=== PATIENT | male | born 1960 | race Caucasian/White ===

== ENCOUNTER → 2021-05-25 09:55 | Outpatient (BNVA) | payer MEDICARE, SELFPAY | PROVIDERS: Visit Provider Internal Medicine Rheumatology | DX: M19.90 Unspecified osteoarthritis, unspecified site (principal); Z79.899 Other long term (current) drug therapy; Z11.59 Encounter for screening for other viral diseases; Z11.1 Encounter for screening for respiratory tuberculosis; M77.8 Other enthesopathies, not elsewhere classified; Z71.89 Other specified counseling; F17.200 Nicotine dependence, unspecified, uncomplicated; M45.9 Ankylosing spondylitis of unspecified sites in spine | CPT/HCPCS: 71046; 73130; 73630; 80076; 82306; 82565; 85025; 85651; 86038; 86140; 86431; 86480; 86704; 86803; 86812; 87340; 99204 ==

== ENCOUNTER 2021-05-25 11:43 | Outpatient (CLI) | payer MEDICARE, SELFPAY ==
--- NOTE | 2021-05-25 11:53 | XR_ITS ---
WS: [id number] Exam: XR foot LT min 3V* [id number] Date/Time of Exam: 05/25/2021 11:57 AM Reason For Exam: Z79.899 - Other correction (current) drug therapy No fracture or dislocation. The joint structures are well-maintained. No soft tissue foreign bodies. Posterior heel spur. XR/XR foot LT min 3V* [id number] IMPRESSION: 1. No fracture or other significant finding.
--- NOTE | 2021-05-25 11:53 | XR_ITS ---
WS: [id number] Exam: XR chest 2V* [id number] Date/Time of Exam: 05/25/2021 11:57 AM Reason For Exam: Z79.899 - Other lobsterman (current) drug therapy Findings: The lungs are clear and fully expanded. Costophrenic angles are sharp. No infiltrates. Bronchovascula r relief appears normal. Cardiac silhouette is unremarkable. Bony elements are intact. XR/XR chest 2V* [id number] IMPRESSION: Unremarkable chest radiograph.
--- NOTE | 2021-05-25 11:53 | XR_ITS ---
WS: [id number] Exam: XR foot RT min 3V* [id number] Date/Time of Exam: 05/25/2021 11:57 AM Reason For Exam: Z79.899 - Other detention (current) drug therapy No acute fracture or dislocation. Joint structures are relatively well maintained. No soft tissue for eign bodies are seen. Plantar heel spur. Old fracture deformities and postoperative changes partially visualized in the lower tibia and fibula. XR/XR foot RT min 3V* [id number] IMPRESSION: 1. No fracture or dislocation. 2. Other minor findings as above.
--- NOTE | 2021-05-25 11:53 | XR_ITS ---
WS: [id number] Exam: XR hand RT min 3V* [id number] Date/Time of Exam: 05/25/2021 11:57 AM Reason For Exam: Z79.899 - Other custodial (current) drug therapy No acute fracture or dislocation. No soft tissue foreign bodies are seen. Mild DJD at the CMC joint o f the thumb and the third MP joint. XR/XR hand RT min 3V* [id number] IMPRESSION: 1. Minimal degenerative change. No fracture or other significant finding.
--- NOTE | 2021-05-25 11:53 | XR_ITS ---
WS: [email or web address] Exam: XR hand LT min 3V* [id number] Date/Time of Exam: 05/25/2021 11:57 AM Reason For Exam: Z79.899 - Other detention (current) drug therapy No acute fracture or dislocation noted. Joint structures are well-maintained. 1 mm metallic soft tiss ue foreign body in the distal index finger. XR/XR hand LT min 3V* [id number] IMPRESSION: 1. No fracture or dislocation. 2. 1 mm metallic soft tissue foreign body in the index finger.
[2021-05-25 12:35] LABS: Basophils # 0.1 10^3/uL (0.0-0.1); Basophils % 0.8 %; Eosinophils # 0.1 10^3/uL (0.0-0.8); Eosinophils % 0.9 %; Hematocrit 47.8 % (42.0-52.0); Hemoglobin 16.2 g/dL (11.7-16.6); Lymphocytes # 1.5 10^3/uL (0.8-4.8); Lymphocytes % 23.8 %; Mean Corpuscular HGB Conc 33.9 g/dL (30.0-36.0); Mean Corpuscular Hemoglobin 30.3 pg (28.0-34.0); Mean Corpuscular Volume 89.5 fl (80-94); Monocytes # 0.4 10^3/uL (0.2-0.9); Monocytes % 6.7 %; Neutrophils # 4.31 10^3/uL (1.8-7.7); Neutrophils % 67.5 %; Nucleated Red Blood Cells % 0 %; Platelet Count 288 10^3/cmm (130-400); Red Blood Count 5.34 10^6/uL (4.1-5.3); Red Cell Distribution Width 12.6 % (12.1-15.1); White Blood Count 6.4 10^3/uL (4.0-10.0)
[2021-05-25 13:00] LABS: Alanine Aminotransferase 14 U/L (0-41); Albumin Level 4.7 g/dL (3.5-5.2); Alkaline Phosphatase 103 IU/L (40-130); Aspartate Amino Transferase 16 U/L (0-40); C Reactive Protein 1.8 mg/L (0.0-4.9); Globulin 2.7 g/dL (1.3-4.6); Glomerular Filtration Rate 98.6 mL/min (90-130); Total Bilirubin 0.4 mg/dL (0.15-1.2); Total Protein 7.4 g/dL (6.6-8.7)
[2021-05-25 13:16] LABS: 25 Hydroxy Vitamin D 43 ng/mL (30-100)
[2021-05-25 13:19] LABS: Erythrocyte Sedimentation Rate 5 mm/hr (0-10)
[2021-05-25 13:34] LABS: Hepatitis B Core AB, Total Non-Reactive (Nonreactive); Hepatitis B Surface Antigen Non-Reactive (Nonreactive); Hepatitis C Virus Antibody Non-Reactive (Nonreactive)
[2021-05-26 14:58] LABS: Cyclic Citrullinated Peptide <16 UNITS
[2021-05-27 12:38] LABS: Anti-Nuclear Antibody Pattern Cytoplasmic; Anti-Nuclear Antibody Screen POSITIVE (NEGATIVE); Anti-Nuclear Antibody Titer 1:40 titer
[2021-05-27 13:08] LABS: HLA-B27 NEGATIVE (NEGATIVE)
[2021-05-27 14:32] LABS: Quantiferon Nil 0.02 IU/mL; Quantiferon TB Gold NEGATIVE (NEGATIVE)
== END 2021-05-25 11:44 | disposition home or self-care (01) ==
PROVIDERS: PCP Nurse Practitioner Family; Visit Provider Internal Medicine Rheumatology
DX: M19.90 Unspecified osteoarthritis, unspecified site (principal); Z79.899 Other long term (current) drug therapy; Z11.59 Encounter for screening for other viral diseases; M45.9 Ankylosing spondylitis of unspecified sites in spine; Z11.1 Encounter for screening for respiratory tuberculosis
CPT/HCPCS: 71046; 73130; 73630; 80076; 82306; 82565; 85025; 85651; 86038; 86140; 86431; 86480; 86704; 86803; 86812; 87340

== ENCOUNTER 2021-06-14 12:27 | Inpatient (IN) | payer MEDICARE, SELFPAY ==
[2021-06-14] VITALS (11 sets, daily range): BP systolic 108–133; BP diastolic 66–82; PULSE 76–93; RESP 16–18; TEMP 36.5–38.8; O2SAT 95–100; BMI 21.2
--- NOTE | 2021-06-14 12:57 | ECG_ITS ---
[facility] Test Date: 2021-06-14 Pat Name: Quang Mccullough Department: Room: Gender: Male Stitchdown Toe Former: : 1960 Requested By: Tung Palacios Order Number: [id number] Sergey MD: Ashwin Back M.D. Measurements Intervals [place] Rate: 84 P: 82 RI: 182 QRS: 78 QRSD: 83 T: 76 QT: 338 QTc: 400 Interpretive Statements SINUS RHYTHM POSSIBLE LEFT ATRIAL ENLARGEMENT [-0.1mV P-WAVE IN V1/V2] MODERATE T-WAVE ABNORMALITY, CONSIDER ANTERIOR ISCHEMIA [-0.1+ mV T-WAVE IN V3/V4] No previous ECG available for comparison Electronically Signed On 06-14-2021 23:52:09 CDT by Ashwin Back M.D. [id number]
--- NOTE | 2021-06-14 13:05 | W.ED.GENADLT ---
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 Patient tells me that he started hydroxychloroquine 200 mg twice daily 20 days ago. 10 days ago, he noticed mild red and tender rash on his L arm and R leg. Since then, patient has been noticed more discrete rash in the foot and arms that has become confluent on the chest and face. Patient also reports nausea and vomiting for the last 2 days. Patient denies any melena or hematochezia. Patient reports that 2 days ago he took his temperature and measured 100.7 by mouth at home. Since then, patient has been not feeling well. Yesterday patient noticed a tick bite on the right leg. He subsequently remove the tick. He is on aware how long the tick has been there for. Patient went to an outside emergency room for evaluation and basic blood work including tick work-up that was negative. Patient reports ongoing diffuse abdominal pain prior to the rash. Onset:10 days ago Duration:10 days Location:home Severity:severe Review of Systems Narrative: Constitutional: +fever, no chills. HEENT: No vision changes CV: No chest pain, no palpitations PULM: no cough, no dyspnea. GI: + diffuse abdominal pain, +N/+V/-D. : No dysuria MSKEL: No muscle pain SKIN: +rash all over body NEURO: No headache, no focal weakness. HEME: No visible bruises PSYCH: Normal mood PFSH ED PFSH: Medical History High risk medication use Immunization counseling Inflammatory arthritis Joint pain Stomach disorder Surgical History History of ankle surgery History of appendectomy History of cholecystectomy History of prostate surgery Family History Other Adopted Social History Smoking and tobacco status: current every day smoker Alcohol intake: never Adopted: Yes History of recent travel: No Physical Exam Narrative: EXAM NARRATIVE: Head: Atraumatic Eyes: PERRL, conjunctiva without injection ENT: +lips and gumline erythema, no signs of oropharyngeal swelling NECK: Supple, ROM intact LUNGS: LCTAB, no crackles/rhonchi CV: RRR ABDOMEN: Soft, +diffuse abdominal tenderness EXTREMITY: Normal ROM SKIN:+diffuse confluent plaques over the chest,back, and head, +discrete papular rash over the legs and arms NEURO: Awake and alert, no focal motor deficits PSYCH: Normal mood and affect Course Vital Signs: Vital signs: Vital Signs Temperature 97.7 F 06/14/21 18:00 Pulse Rate 88 06/14/21 18:00 Respiratory Rate 16 06/14/21 18:00 Blood Pressure 116/69 06/14/21 18:00 Pulse Oximetry 95 06/14/21 18:00 MDM - General Adult MDM Narrative: Medical decision making narrative: Patient is a 60-year-old male with history of rheumatoid arthritis on hydroxychloroquine who presents to the emergency room for concerns of rash and fever. On exam, patient is febrile to 100.7. Patient has confluent plaques over the face and chest and back with discrete lesions over the arms and legs. Patient has oropharyngeal involvement with rash. Patient was emergently discussed with Dr. Johnson from dermatology who thinks that this is most consistent with drug induced skin rash (Acute generalized exanthematous pustulosis, AGEP). However, at this time, it is impossible to rule early SJS/TN [place] spotted fever. Dr. Johnson does not recommend treating this as a burn patients as patient does not have any signs of skin desquamation and requiring transferring to a regional burn center. Dr. Johnson reassures me that biopsy sample has been sent and they are planning to expedite the results for tomorrow. I have attempted to call [facility] ER which told me that they did not perofrm a tick panel on this patient. We will send a tick panel today. In the meantime, given finding of rash, fever, will treat patient for drug-induced skin rash vs Meningococcemia vs RMSF vs early SJS/TEN WBC of 14.6. Fever of 100.6. No bands today. Rest of labs within normal limits. CT abdomen pelvis did not show any signs of focal findings. Patient will be admitted to hospital for rehydration, steroids, and antibiotics. Disposition: Admission for serial reevaluation Lab Data: Labs: Lab Results 06/14/21 06/14/21 06/14/21 Range/Units 13:15 13:23 13:23 WBC Cancelled Corrected WBC Cancelled RBC Cancelled Hgb Cancelled Hct Cancelled MCV Cancelled MCH Cancelled MCHC Cancelled RDW Cancelled Plt Count Cancelled MPV Cancelled Neut % (Auto) % Lymph % (Auto) % Gaines % (Auto) % Eos % (Auto) % Baso % (Auto) % Neut # (Auto) (1.8-7.7) 10^3/u L Lymph # (Auto) (0.8-4.8) 10^3/u L Gaines # (Auto) (0.2-0.9) 10^3/u L Eos # (Auto) (0.0-0.8) 10^3/u L Baso # (Auto) (0.0-0.1) 10^3/u L Nucleated RBC % (a uto) % Total Counted Cancelled Atypical Lymphs % Cancelled Absolute Neutrophi ls Cancelled Segmented Neutroph ils Cancelled Abs Segm Neuts (Ma n) Cancelled Band Neutrophils Cancelled Abs Band Neuts (Ma n) Cancelled Absolute Lymphocyt es Cancelled Lymphocytes (Manua l) Cancelled Monocytes (Manual) Cancelled Absolute Monocytes Cancelled Eosinophils (Manua l) Cancelled Absolute Eosinophi ls Cancelled Basophils (Manual) Cancelled Absolute Basophils Cancelled Metamyelocytes Cancelled Myelocytes Cancelled Promyelocytes Cancelled Nucleated RBCs Cancelled Nucleated RBCs # /100WBC Pathologist Review Cancelled Hypersegmented Catarino ys Cancelled Blast Cells Cancelled Smudge Cells Cancelled Toxic Granulation Cancelled Toxic Vacuolation Cancelled Dohle Bodies Cancelled Preeti Rods Cancelled Platelet Estimate Cancelled Giant Platelets Cancelled Polychromasia Cancelled Hypochromasia Cancelled Poikilocytosis Cancelled Basophilic Stippli ng Cancelled Anisocytosis Cancelled Microcytosis Cancelled Macrocytosis Cancelled Spherocytes Cancelled Sickle Cells Cancelled Target Cells Cancelled Tear Drop Cells Cancelled Ovalocytes Cancelled Stomatocytes Cancelled Helmet Cells Cancelled [place] Albino s Cancelled Flaca Cells Cancelled Crenated Cell Cancelled Acanthocytes (Spur ) Cancelled Rouleaux Cancelled Schistocytes Cancelled RBC Morph Comment Cancelled PT 13.80 (12.1-14.9) SECO NDS INR 1.03 (0.8-1.2) APTT 33.5 (23.9-36.7) SECO NDS Sodium (136-145) mmol/L Potassium (3.5-5.1) mmol/L Chloride (98-107) mmol/L Carbon Dioxide (22-29) mmol/L Anion Gap (5-19) BUN (8-23) mg/dL Creatinine (0.7-1.2) mg/dL GFR Calculation (90-130) mL/min Glucose (65-115) mg/dL Calculated Osmolal ity (285-295) mOsm/k g Lactate (0.5-2.2) mmol/L Calcium (8.5-10.5) mg/dL Total Bilirubin (0.15-1.2) mg/dL AST (0-40) U/L ALT (0-41) U/L Alkaline Phosphata se (40-130) IU/L Total Protein (6.6-8.7) g/dL Albumin (3.5-5.2) g/dL Globulin (1.3-4.6) g/dL Lipase (13-60) U/L Urine Color Yellow (Yellow) Urine Appearance Clear (CLEAR) Urine pH 5 (5-7) Ur Specific Gravit y 1.015 (1.005-1.030) Urine Protein Neg (Negative) Urine Glucose (UA) Norm (Normal) Urine Ketones Negative (Negative) Urine Blood Neg (Negative) Urine Nitrate Negative (Negative) Urine Bilirubin Neg (Negative) Urine Urobilinogen Norm (Negative) mg/dL Ur Leukocyte Ebonie ase Negative (Negative) 06/14/21 06/14/21 06/14/21 Range/Units 13:23 13:23 13:23 WBC 14.6 H Corrected WBC RBC 4.94 Hgb 15.3 Hct 42.8 MCV 86.6 MCH 31.0 MCHC 35.7 RDW 12.3 Plt Count 234 MPV 9.2 Neut % (Auto) 90.3 % Lymph % (Auto) 3.9 % Gaines % (Auto) 3.9 % Eos % (Auto) 1.0 % Baso % (Auto) 0.3 % Neut # (Auto) 13.15 H (1.8-7.7) 10^3/u L Lymph # (Auto) 0.6 L (0.8-4.8) 10^3/u L Gaines # (Auto) 0.6 (0.2-0.9) 10^3/u L Eos # (Auto) 0.2 (0.0-0.8) 10^3/u L Baso # (Auto) 0.0 (0.0-0.1) 10^3/u L Nucleated RBC % (a uto) 0 % Total Counted Atypical Lymphs % Absolute Neutrophi ls Segmented Neutroph ils Abs Segm Neuts (Ma n) Band Neutrophils Abs Band Neuts (Ma n) Absolute Lymphocyt es Lymphocytes (Manua l) Monocytes (Manual) Absolute Monocytes Eosinophils (Manua l) Absolute Eosinophi ls Basophils (Manual) Absolute Basophils Metamyelocytes Myelocytes Promyelocytes Nucleated RBCs Nucleated RBCs # 0.0 /100WBC Pathologist Review Hypersegmented Catarino ys Blast Cells Smudge Cells Toxic Granulation Toxic Vacuolation Dohle Bodies Preeti Rods Platelet Estimate Giant Platelets Polychromasia Hypochromasia Poikilocytosis Basophilic Stippli ng Anisocytosis Microcytosis Macrocytosis Spherocytes Sickle Cells Target Cells Tear Drop Cells Ovalocytes Stomatocytes Helmet Cells [place] Albino s Jay Cells Crenated Cell Acanthocytes (Spur ) Rouleaux Schistocytes RBC Morph Comment PT (12.1-14.9) SECO NDS INR (0.8-1.2) APTT (23.9-36.7) SECO NDS Sodium 135 L (136-145) mmol/L Potassium 3.8 (3.5-5.1) mmol/L Chloride 99 (98-107) mmol/L Carbon Dioxide 25 (22-29) mmol/L Anion Gap 14.8 (5-19) BUN 8 (8-23) mg/dL Creatinine 0.8 (0.7-1.2) mg/dL GFR Calculation 98.6 (90-130) mL/min Glucose 91 (65-115) mg/dL Calculated Osmolal ity 278 L (285-295) mOsm/k g Lactate 1.4 (0.5-2.2) mmol/L Calcium 8.6 (8.5-10.5) mg/dL Total Bilirubin 0.8 (0.15-1.2) mg/dL AST 23 (0-40) U/L ALT 22 (0-41) U/L Alkaline Phosphata se 102 (40-130) IU/L Total Protein 6.2 L (6.6-8.7) g/dL Albumin 4.2 (3.5-5.2) g/dL Globulin 2.0 (1.3-4.6) g/dL Lipase 27 (13-60) U/L Urine Color (Yellow) Urine Appearance (CLEAR) Urine pH (5-7) Ur Specific Gravit y (1.005-1.030) Urine Protein (Negative) Urine Glucose (UA) (Normal) Urine Ketones (Negative) Urine Blood (Negative) Urine Nitrate (Negative) Urine Bilirubin (Negative) Urine Urobilinogen (Negative) mg/dL Ur Leukocyte Ebonie ase (Negative) Imaging Data^: Other Imaging: Radiologist's impression: [email or web address] [id number] Scan ReportSigned Patient: Coco Mccullough #: [id number]: 1960Acct#:[id number]/Sex: 60 / MADM Date: 06/14/21Loc: ERRoom/Bed:Attending Dr: Ordering Provider/Ordering MD: Tung Palacios MD Date of Service: 06/14/21 Procedure(s): CT abdomen pelvis w con* [id number] Accession Number(s): [id number] Report Number: [id number] WS: [id number] CT ABDOMEN AND PELVIS WITH CONTRAST HISTORY: Abdominal pain for 5 years. Nausea and vomiting. TECHNIQUE: Imaging performed of the abdomen and pelvis with IV contrast. Single phase imaging of the abdomen. Coronal and sagittal reformats are submitted. [facility] use at least one of these dose optimization techniques: automated exposure control; mA and/or kV adjustment per patient size (includes targeted exams where dose is matched to clinical indication); or iterative reconstruction. IV CONTRAST: Omnipaque 300; 95 mL IV. Oral contrast: No DLP: 1033.99 mGy.cm COMPARISON: None available. Lower thorax: Mild interstitial thickening at the lung bases. Mild tree-in-bud airspace disease greatest on the LEFT. Additional groundglass in the lingula and at the RIGHT middle lobe. Heart is normal size. No hiatal hernia. Liver/biliary system: Normal size with no intrahepatic dilatation. Gallbladder: Status post cholecystectomy. Pancreas: Normal size pancreas and pancreatic duct. No adjacent inflammation. Spleen: Normal size spleen. No mass or infarct. Adrenal glands: Normal. Right kidney: Normal size kidney. There is a hypodensity in the lower pole which is probably cysts but too small to characterize completely. No obstruction. Left kidney: Normal size kidney. 6 mm cortical cyst lower pole. Aorta: Normal. Lymphadenopathy: None. Free fluid: None. GI tract: Normal appendix. Diffuse mild constipation. No obstruction or wall thickening. Abdominal wall: Unremarkable abdominal wall. No hernia. Pelvis: No free fluid or adenopathy within the pelvis. Bones: Degenerative disc disease at L5-S1. Foraminal osteophyte causing mild bilateral foraminal stenosis at L5-S1, greatest on the LEFT. CT/CT abdomen pelvis w con* [id number] IMPRESSION: 1. No acute abdominal or pelvic abnormalities identified. 2. Prior cholecystectomy. 3. Normal appendix. 4. Mild constipation. 5. Focal areas of mild pneumonitis at the lung bases, lingula and middle lobe. Dictated By:Savanna Chiu DOSigned By:Savanna Chiu DOSigned Date/Time:06/14/21 1357DD/ 1349 Discharge Plan Discharge Patient Disposition: Admitted As Inpatient Admit Provider: Mahin Vogel Clinical Impression: Diffuse papular rash, Fever Condition: Stable Coding Level of Care Code ED Equipment Engineer for Char Reed
--- NOTE | 2021-06-14 13:13 | CT_ITS ---
WS: [id number] CT ABDOMEN AND PELVIS WITH CONTRAST HISTORY: Abdominal pain for 5 years. Nausea and vomiting. TECHNIQUE: Imaging performed of the abdomen and pelvis with IV contrast. Single phase imaging of the abdomen. Coronal and sagittal reformats are submitted. All CT scans at [facility] use at [address] one of these dose optimization techniques: automated exposure control; mA and/or kV adjustment per patient size (includes targeted exams where dose is matched to clinical indication); or iterative re construction. IV CONTRAST: Omnipaque 300; 95 mL IV. Oral contrast: No DLP: 1033.99 mGy.cm COMPARISON: None available. Lower thorax: Mild interstitial thickening at the lung bases. Mild tree-in-bud airspace disease great est on the LEFT. Additional groundglass in the lingula and at the RIGHT middle lobe. Heart is normal size. No hiatal hernia. Liver/biliary system: Normal size with no intrahepatic dilatation. Gallbladder: Status post cholecystectomy. Pancreas: Normal size pancreas and pancreatic duct. No adjacent inflammation. Spleen: Normal size spleen. No mass or infarct. Adrenal glands: Normal. Right kidney: Normal size kidney. There is a hypodensity in the lower pole which is probably cysts bu t too small to characterize completely. No obstruction. Left kidney: Normal size kidney. 6 mm cortical cyst lower pole. Aorta: Normal. Lymphadenopathy: None. Free fluid: None. GI tract: Normal appendix. Diffuse mild constipation. No obstruction or wall thickening. Abdominal wall: Unremarkable abdominal wall. No hernia. Pelvis: No free fluid or adenopathy within the pelvis. Bones: Degenerative disc disease at L5-S1. Foraminal osteophyte causing mild bilateral foraminal sten osis at L5-S1, greatest on the LEFT. CT/CT abdomen pelvis w con* [id number] IMPRESSION: 1. No acute abdominal or pelvic abnormalities identified. 2. Prior cholecystectomy. 3. Normal appendix. 4. Mild constipation. 5. Focal areas of mild pneumonitis at the lung bases, lingula and middle lobe.
[2021-06-14] MEDS: iohexol 300 mg/mL 100 mL Btl IV (13:44)
[2021-06-14 13:45] LABS: INR 1.03 (0.8-1.2)
[2021-06-14 13:46] LABS: Basophils % 0.3 %; Eosinophils # 0.2 10^3/uL (0.0-0.8); Hematocrit 42.8 % (42.0-52.0); Hemoglobin 15.3 g/dL (11.7-16.6); Lymphocytes # 0.6 10^3/uL (0.8-4.8); Lymphocytes % 3.9 %; Mean Corpuscular HGB Conc 35.7 g/dL (30.0-36.0); Mean Corpuscular Volume 86.6 fl (80-94); Mean Platelet Volume 9.2 fL (7.4-10.4); Monocytes # 0.6 10^3/uL (0.2-0.9); Monocytes % 3.9 %; Neutrophils # 13.15 10^3/uL (1.8-7.7); Neutrophils % 90.3 %; Nucleated Red Blood Cells % 0 %; Partial Thromboplastin Time 33.5 SECONDS (23.9-36.7); Platelet Count 234 10^3/cmm (130-400); Red Blood Count 4.94 10^6/uL (4.1-5.3); Red Cell Distribution Width 12.3 % (12.1-15.1); White Blood Count 14.6 10^3/uL (4.0-10.0)
[2021-06-14] MEDS: acetaminophen 500 mg Tablet 1000 MG PO (13:47)
[2021-06-14] MEDS: sodium chloride 0.9% 1,000 ML 999 ML IV (13:48)
[2021-06-14] MEDS: ondansetron 2 mg/ML SDV 2 mL 4 MG IVP (13:50)
[2021-06-14] MEDS: morphine 4 mg/mL SDV 1 mL IVP (13:53)
[2021-06-14 13:55] LABS: Alanine Aminotransferase 22 U/L (0-41); Albumin Level 4.2 g/dL (3.5-5.2); Alkaline Phosphatase 102 IU/L (40-130); Anion Gap 14.8 (5-19); Aspartate Amino Transferase 23 U/L (0-40); Blood Urea Nitrogen 8 mg/dL (8-23); Calcium 8.6 mg/dL (8.5-10.5); Carbon Dioxide 25 mmol/L (22-29); Chloride 99 mmol/L (98-107); Glomerular Filtration Rate 98.6 mL/min (90-130); Glucose 91 mg/dL (65-115); Lipase 27 U/L (13-60); Osmolality Calculated 278 mOsm/kg (285-295); Potassium 3.8 mmol/L (3.5-5.1); Sodium 135 mmol/L (136-145); Total Bilirubin 0.8 mg/dL (0.15-1.2); Total Protein 6.2 g/dL (6.6-8.7)
[2021-06-14] MEDS: cefepime 1,000 MG in sodium chloride 0.9% (plus) 50 ML 100 MG IV (13:55)
[2021-06-14 13:56] LABS: Lactate (Lactic Acid level) 1.4 mmol/L (0.5-2.2)
[2021-06-14 13:58] LABS: Add Urine Microscopic? NO; Charge for UA Resulting for Rev
[2021-06-14 14:18] LABS: Bilirubin Urine Neg (Negative); Blood Urine Neg (Negative); Glucose Urine UA Norm (Normal); Ketones Urine Negative (Negative); Leukocyte Esterase Urine Negative (Negative); Nitrate Urine Negative (Negative); Protein Urine Neg (Negative); Specific Gravity, Urine 1.015 (1.005-1.030); Urine Appearance Clear (CLEAR); Urine Color Yellow (Yellow); Urobilinogen Urine Norm (Negative); pH Urine 5 (5-7)
[2021-06-14] MEDS: vancomycin 1,000 MG in sodium chloride 0.9% 250 ML 250 MG IV (14:29)
[2021-06-14] MEDS: sodium chloride 0.9% 1,000 ML 30 ML IV (14:30)
[2021-06-14] MEDS: doxycycline 100 MG in sodium chloride 0.9% (plus) 100 ML IV (16:18)
--- NOTE | 2021-06-14 20:08 | PM.HP ---
Providers/Chief Complaint Admitting Physician: Mahin Vogel MD Primary Care Provider: Lili Mendiola STAFF DEVELOPMENT COORDINATOR RN Chief Complaint: RASH History of Present Illness Quang Mccullough is a 60 year old male with PMH of inflammatory arthritis came in with c/o Worsening diffuse skin eruption accompanied with itching and fever since Sunday evening. He was started on hydroxychloroquine approximately 2 weeks ago by his rhematologist for inflammatory arthritis. Patient was seen by checkroom attendant as outpatient today where skin biopsy was obtained and was sent to ER for close monitoring as inpatient. Upon arrival in the ER he was worked up for above mention complain. Imaging studies: CT abdomen pelvis w con: No acute abdominal or pelvic abnormalities identified Focal areas of mild pneumonitis at the lung bases, lingula and middle lobe. Pertinent Labs : WBC: 14.6 H&H : 15.3/42, PLT : 234 , Serum : 135 k: 3.8 BUN/SCR: 8/0.8 , lactic acid :1.8, AST :nL. ALT :Nl, ALP:Nl In the ER patient received : Solumedrol 125 mg I.V *1 DSOE as well as 1 gm cefepime as well as vancomycin and doxycycline 100 mg I.V * 1 Dose Review of Systems Const: Denies: change in appetite or diaphoresis Card: Denies: palpitations, edema, swelling of feet/ankles, dyspnea on exertion, orthopnea or leg pain with exertion Resp: Denies: dyspnea, productive cough, wheezing or pain on inspiration GI: Denies: abdominal pain, nausea, vomiting, diarrhea or constipation : Denies: flank pain or difficulty urinating Musc: Denies: back pain, extremity pain or extremity swelling Neuro: Denies: headache(s), difficulty walking or confusion Medications/Allergies Home Medications Medication Instructions Recorded Confirmed Last Taken Type hydrocodone 5 mg-acetaminophen 325 1 tab PO BID PRN 05/25/21 06/14/21 06/14/21 History mg tablet hyoscyamine sulfate 0.125 mg tablet 0.125 mg PO QID 05/25/21 06/14/21 Unknown History ondansetron HCl 4 mg tablet 4 mg PO Q8H 05/25/21 06/14/21 Unknown History Allergies Allergy/AdvReac Type Severity Reaction Status Date / Time hydroxychloroquine Allergy Severe throat Verified 06/13/21 17:02 and long swelling...ER.. PFSH Acute PFSH: Medical History High risk medication use Immunization counseling Inflammatory arthritis Joint pain Stomach disorder Surgical History History of ankle surgery History of appendectomy History of cholecystectomy History of prostate surgery Family History Other Adopted Social History Smoking and tobacco status: current every day smoker Alcohol intake: never Adopted: Yes History of recent travel: No Vitals/I&O/Wt Last Vital Signs Temp 97.7 F 06/14/21 18:00 Pulse 88 06/14/21 18:00 Resp 16 06/14/21 18:00 BP 116/69 06/14/21 18:00 Pulse Ox 95 06/14/21 18:00 06/14/21 06/14/21 06/14/21 06:59 14:59 22:59 Intake Total 50 / 50 1590 / 1640 Output Total 600 / 600 Balance 50 / 50 990 / 1040 Weight last 48 hrs Weight 69.672 kg Weight 67.132 kg Physical Exam Narrative: EXAM NARRATIVE: Erythematous patches and plaques on the face, extremities, groin, and trunk with pink macules on the palms and soles Const: COMMON NORMALS: patient oriented x3 HENMT: COMMON NORMALS: normocephalic and atraumatic HEAD & SCALP: normocephalic and atraumatic OTHER: Oral crusting and superficial erosion Resp: COMMON NORMALS: clear to auscultation bilaterally EFFORT & INSPECTION: Yes symmetric chest movement AUSCULTATION: clear to auscultation bilaterally Cardio: COMMON NORMALS: regular rate, regular rhythm, S1 normal heart sound present, S2 normal heart sound present, No gallops present (Cardio), No murmurs present (Cardio), No rub (Cardio) and Peripheral pulses 2+ throughout RATE: regular rate RHYTHM: regular rhythm HEART SOUNDS: S1 normal heart sound present and S2 normal heart sound present PERIPHERAL PULSES: Peripheral pulses 2+ throughout GI: COMMON NORMALS: Normal to inspection, nondistended, normoactive bowel sounds present, Soft to palpation, non-tender, No hepatosplenomegaly present and no masses AUSCULTATION: Yes normoactive bowel sounds PALPATION: Yes Soft to palpation and Yes No hepatosplenomegaly present RECTAL EXAM: Yes deferred Extremity: COMMON NORMALS: no clubbing, cyanosis or edema and no pedal edema Neuro: COMMON NORMALS: patient oriented x3 Data : 06/14/21 13:23 06/14/21 13:23 Micro: Microbiology 06/14/21 13:55 Blood Culture - Preliminary Blood SPECIMEN COLLECTED 06/14/21 13:23 Blood Culture - Preliminary Blood SPECIMEN COLLECTED A&P Assessment and plan (1) Diffuse papular rash: Drug Induced : AGEP ( acute generalized exanthematous pustulosis ) Likely 2/2 to recent HCQ use. Other D/D Includes: SJS-TEN - DRESS Plan Follow ESR Blood Cultures Tick Panel Solumedrol 60 mg IV Q8H Daily Famotidine 20 mg I.V Q12 H Daily Bendryl 50 mg po q4h prn Status: Acute (2) Fever: Status: Acute (3) Inflammatory arthritis: Status: Acute Attestations Medical Necessity Statement*: Patient needs to be in hospital for the acute generalized exanthematous pustulosis. Anticipated LOS Greater then 2 midnights. Coding Level of Care Code Acute School Bus Driver/Teacher Assistant for Char Reed Diagnoses Diffuse papular rash R21 Fever R50.9 Inflammatory arthritis M19.90
[2021-06-14] MEDS: oxyCODONE-APAP 5-325 mg Tablet 1 TAB PO (20:52)
[2021-06-14] MEDS: famotidine 20 mg/2 mL INJ IVP (20:52)
[2021-06-15] VITALS (10 sets, daily range): BP systolic 115–149; BP diastolic 61–86; PULSE 70–88; RESP 16–18; TEMP 36.6–37; O2SAT 97–99
[2021-06-15] MEDS: ondansetron 2 mg/ML SDV 2 mL 4 MG IVP ×3 (04:37→20:16)
[2021-06-15] MEDS: oxyCODONE-APAP 5-325 mg Tablet 1 TAB PO ×3 (04:43→20:16)
[2021-06-15 04:53] LABS: Basophils % 0.3 %; Hematocrit 38.7 % (42.0-52.0); Hemoglobin 13.1 g/dL (11.7-16.6); Lymphocytes # 0.4 10^3/uL (0.8-4.8); Lymphocytes % 2.5 %; Mean Corpuscular HGB Conc 33.9 g/dL (30.0-36.0); Mean Corpuscular Hemoglobin 30.3 pg (28.0-34.0); Mean Corpuscular Volume 89.4 fl (80-94); Mean Platelet Volume 9.4 fL (7.4-10.4); Monocytes # 0.3 10^3/uL (0.2-0.9); Neutrophils # 14.91 10^3/uL (1.8-7.7); Neutrophils % 93.1 %; Nucleated Red Blood Cells % 0 %; Platelet Count 227 10^3/cmm (130-400); Red Blood Count 4.33 10^6/uL (4.1-5.3); Red Cell Distribution Width 12.3 % (12.1-15.1)
[2021-06-15 05:18] LABS: Alanine Aminotransferase 21 U/L (0-41); Albumin Level 3.5 g/dL (3.5-5.2); Alkaline Phosphatase 93 IU/L (40-130); Aspartate Amino Transferase 16 U/L (0-40); Blood Urea Nitrogen 11 mg/dL (8-23); Calcium 8.4 mg/dL (8.5-10.5); Carbon Dioxide 22 mmol/L (22-29); Chloride 106 mmol/L (98-107); Globulin 2.7 g/dL (1.3-4.6); Glucose 156 mg/dL (65-115); Osmolality Calculated 289 mOsm/kg (285-295); Sodium 138 mmol/L (136-145); Total Bilirubin 0.3 mg/dL (0.15-1.2); Total Protein 6.2 g/dL (6.6-8.7)
[2021-06-15 05:24] LABS: Lactic Sepsis W/Reflex 1.4 mmol/L (0.5-2.2)
[2021-06-15 05:45] LABS: Erythrocyte Sedimentation Rate 25 mm/hr (0-10)
[2021-06-15] MEDS: famotidine 20 mg/2 mL INJ IVP ×2 (08:54→20:16)
--- NOTE | 2021-06-15 10:10 | PC.CHAP ---
Pastoral Care Encounter/Spiritual Assessment Type of Contact [] Declined java j2ee technical lead visit [] Patient/Family/Request visit [] Outpatient visit [] Follow-up visit [] Physician referral [] Code/Alert [x] Routine visit [] Staff referral [] Actively dying [] Patient sleeping [] Family support [] [] Out of room [] Palliative care [] [] Receiving care in room [] Pre-surgical visit [] Trauma [] Long length of stay [] ICU visit [] Other: Relational/Emotional Strength [x] Patient feels connected with others/family/visitors/staff [] Distress [] Loneliness/isolation [] Abandonment Spirituality of Patient [x] Person of Katia [] Attends Episcopal of their Katia [x] Believes in Prayer [] Reads Bible or Sikh materials [] There are Spiritual issues to be addressed Shingler Interventions x[x] Prayer [x] Active listening [x] Non-anxious presence [] Spiritual/emotional support [] Crisis/trauma care [] Spiritual counseling [] Bereavement support [] Provided bereavement packet [] Provided Bible/devotional materials [] Provided toy/stuffed animal, coloring book to patient or family member [] Provided Communion [] Anointing/[place] [] Salvation x] Completed spiritual assessment [] Other: Impact on Illness or Injury [] Angry [] Fearful [] Anxious [] Often cries [] Exhaustion [] Unable to work [] Unable to attend adventist [] Unable to walk/stand [] Unable to read [] Unable to drive [] Unable to eat/drink [] Unable to sleep [] Unable to be with family [] Patient intubated [] Other: Summary Time spent with patient 1q 5 min
[2021-06-15] MEDS: doxycycline 100 MG in sodium chloride 0.9% (plus) 100 ML IV ×2 (11:04→22:13)
[2021-06-15] MEDS: diphenhydrAMINE 50 mg Capsule PO (11:09)
[2021-06-15] MEDS: sodium chloride 0.9% 1,000 ML 30 ML IV (12:25)
--- NOTE | 2021-06-15 13:17 | P.PN_ITS ---
Subjective Subjective: Interval history: Patient was seen and examined this morning, rash has not worsened, complaining of minimal itching, no fever overnight. Medications: Reviewed: Yes Vitals/I&O/Wt Last Vital Signs Temp 98.4 F 06/15/21 08:25 Pulse 70 06/15/21 08:25 Resp 16 06/15/21 11:08 BP 123/65 06/15/21 08:25 Pulse Ox 99 06/15/21 08:25 06/14/21 06/15/21 06/15/21 22:59 06:59 14:59 Intake Total 1590 / 1640 1117.5 / 1117.5 Output Total 600 / 600 620 / 1220 Balance 990 / 1040 -620 / 420 1117.5 / 1117.5 Weight last 48 hrs Weight 69.672 kg Weight 67.132 kg Physical Exam Narrative: EXAM NARRATIVE: Erythematous patches and plaques on the face, extremities, groin, and trunk with pink macules on the palms and soles Const: COMMON NORMALS: patient oriented x3 HENMT: COMMON NORMALS: normocephalic and atraumatic HEAD & SCALP: normocephalic and atraumatic OTHER: Oral crusting and superficial erosion Resp: COMMON NORMALS: clear to auscultation bilaterally EFFORT & INSPECTION: Yes symmetric chest movement AUSCULTATION: clear to auscultation bilaterally Cardio: COMMON NORMALS: regular rate, regular rhythm, S1 normal heart sound present, S2 normal heart sound present, No gallops present (Cardio), No murmurs present (Cardio), No rub (Cardio) and Peripheral pulses 2+ throughout RATE: regular rate RHYTHM: regular rhythm HEART SOUNDS: S1 normal heart sound present and S2 normal heart sound present PERIPHERAL PULSES: Peripheral pulses 2+ throughout GI: COMMON NORMALS: Normal to inspection, nondistended, normoactive bowel sounds present, Soft to palpation, non-tender, No hepatosplenomegaly present and no masses AUSCULTATION: Yes normoactive bowel sounds PALPATION: Yes Soft to palpation and Yes No hepatosplenomegaly present RECTAL EXAM: Yes deferred Extremity: COMMON NORMALS: no clubbing, cyanosis or edema and no pedal edema Neuro: COMMON NORMALS: patient oriented x3 Data : 06/15/21 04:35 06/15/21 04:35 Micro: Microbiology 06/14/21 13:55 Blood Culture - Preliminary Blood SPECIMEN COLLECTED 06/14/21 13:23 Blood Culture - Preliminary Blood SPECIMEN COLLECTED A&P Assessment and plan (1) Diffuse papular rash: Drug Induced : AGEP ( acute generalized exanthematous pustulosis ) Likely 2/2 to recent HCQ use. Skin biopsy result: In line with AGEP Plan Follow ESR: 25 Blood Cultures : NTD Wound culture: No growth so far Tick Panel : Solumedrol 60 mg IV Q8H Daily Famotidine 20 mg I.V Q12 H Daily Bendryl 50 mg po q4h prn Empirically On doxycycline Status: Acute (2) Fever: Status: Acute (3) Inflammatory arthritis: Status: Acute Attestations Medical Necessity Statement*: Patient needs to be in hospital for management of drug-induced rash. Coding Level of Care Code Acute Elevated Work Platform Operator for [facility] Fwd Exam Detailed Diagnoses Diffuse papular rash R21 Fever R50.9 Inflammatory arthritis M19.90
--- NOTE | 2021-06-15 15:28 | PC.NURSE ---
This RN observed student nurse give documented care to patient.
[2021-06-16] VITALS (10 sets, daily range): BP systolic 115–144; BP diastolic 68–79; PULSE 72–87; RESP 16–20; TEMP 36.6–37.1; O2SAT 94–99
[2021-06-16] MEDS: artificial tears Op Soln 15 mL Btl 1 DROP EYE-BOTH (04:15)
[2021-06-16] MEDS: lanolin oint 7 gm 1 APPLIC TOPICAL (04:15)
[2021-06-16] MEDS: oxyCODONE-APAP 5-325 mg Tablet 1 TAB PO ×3 (05:09→20:29)
[2021-06-16] MEDS: ondansetron 2 mg/ML SDV 2 mL 4 MG IVP ×3 (05:09→20:19)
[2021-06-16 05:47] LABS: Basophils # 0.1 10^3/uL (0.0-0.1); Basophils % 0.4 %; Hematocrit 41.6 % (42.0-52.0); Hemoglobin 14.1 g/dL (11.7-16.6); Lymphocytes # 0.5 10^3/uL (0.8-4.8); Lymphocytes % 2.2 %; Mean Corpuscular HGB Conc 33.9 g/dL (30.0-36.0); Mean Corpuscular Hemoglobin 30.4 pg (28.0-34.0); Mean Corpuscular Volume 89.7 fl (80-94); Mean Platelet Volume 9.7 fL (7.4-10.4); Monocytes # 0.6 10^3/uL (0.2-0.9); Monocytes % 2.6 %; Neutrophils # 20.48 10^3/uL (1.8-7.7); Neutrophils % 93.1 %; Nucleated Red Blood Cells % 0 %; Platelet Count 296 10^3/cmm (130-400); Red Blood Count 4.64 10^6/uL (4.1-5.3); Red Cell Distribution Width 12.3 % (12.1-15.1)
[2021-06-16 06:04] LABS: Alanine Aminotransferase 19 U/L (0-41); Albumin Level 3.7 g/dL (3.5-5.2); Alkaline Phosphatase 99 IU/L (40-130); Anion Gap 14.9 (5-19); Aspartate Amino Transferase 17 U/L (0-40); Blood Urea Nitrogen 11 mg/dL (8-23); Calcium 8.9 mg/dL (8.5-10.5); Carbon Dioxide 23 mmol/L (22-29); Chloride 107 mmol/L (98-107); Globulin 2.6 g/dL (1.3-4.6); Glucose 143 mg/dL (65-115); Osmolality Calculated 294 mOsm/kg (285-295); Potassium 3.9 mmol/L (3.5-5.1); Sodium 141 mmol/L (136-145); Total Bilirubin 0.3 mg/dL (0.15-1.2); Total Protein 6.3 g/dL (6.6-8.7)
--- NOTE | 2021-06-16 08:42 | PC.NURSE ---
Addendum entered by Christiana Marks RN 06/16/21 09:02: patient states it is okay to talk with this son about his care. Original Note: patient stated he wanted to talk with his son, we did not have a phone number for him. he requested we call [email or web address] to talk with his son. I was able to get a hold of him-Raghav Mccullough. I was able to talk to him and transfer him in to the pt room and talk to him.
[2021-06-16] MEDS: famotidine 20 mg/2 mL INJ IVP (09:38)
[2021-06-16] MEDS: doxycycline 100 MG in sodium chloride 0.9% (plus) 100 ML IV ×2 (09:47→23:30)
[2021-06-16] MEDS: diphenhydrAMINE 50 mg/mL SDV 1mL 25 MG IVP ×3 (11:22→20:18)
[2021-06-16] MEDS: morphine 4 mg/mL SDV 1 mL 1 MG IVP (15:22)
[2021-06-16 15:28] LABS: Lyme AB Screen <0.90 index
--- NOTE | 2021-06-16 17:06 | PC.NURSE ---
Patient's son visited with him at this time.
[2021-06-16] MEDS: famotidine 20 mg Tablet PO (17:48)
--- NOTE | 2021-06-16 19:04 | PC.NURSE ---
Report to Dipak DAVIDSON at this time.
--- NOTE | 2021-06-16 20:36 | PM.PN ---
Subjective Subjective: Interval history: Patient was seen and examined this morning, rash has not improved, skin desquamation is present. Patient complains of mild pain, some itching. Has remained afebrile. Medications: Reviewed: Yes Vitals/I&O/Wt Last Vital Signs Temp 98.2 F 06/16/21 15:54 Pulse 78 06/16/21 15:54 Resp 18 06/16/21 20:29 BP 144/79 06/16/21 15:54 Pulse Ox 99 06/16/21 15:54 06/16/21 06/16/21 06/16/21 06:59 14:59 22:59 Intake Total 100 / 1657.5 1180 / 1180 360 / 1540 Output Total 400 / 400 500 / 500 Balance -300 / 1257.5 1180 / 1180 -140 / 1040 Physical Exam Narrative: EXAM NARRATIVE: Erythematous patches and plaques on the face, extremities, groin, and trunk with pink macules on the palms and soles Const: COMMON NORMALS: patient oriented x3 HENMT: COMMON NORMALS: normocephalic and atraumatic HEAD & SCALP: normocephalic and atraumatic OTHER: Oral crusting and superficial erosion Resp: COMMON NORMALS: clear to auscultation bilaterally EFFORT & INSPECTION: Yes symmetric chest movement AUSCULTATION: clear to auscultation bilaterally Cardio: COMMON NORMALS: regular rate, regular rhythm, S1 normal heart sound present, S2 normal heart sound present, No gallops present (Cardio), No murmurs present (Cardio), No rub (Cardio) and Peripheral pulses 2+ throughout RATE: regular rate RHYTHM: regular rhythm HEART SOUNDS: S1 normal heart sound present and S2 normal heart sound present PERIPHERAL PULSES: Peripheral pulses 2+ throughout GI: COMMON NORMALS: Normal to inspection, nondistended, normoactive bowel sounds present, Soft to palpation, non-tender, No hepatosplenomegaly present and no masses AUSCULTATION: Yes normoactive bowel sounds PALPATION: Yes Soft to palpation and Yes No hepatosplenomegaly present RECTAL EXAM: Yes deferred Extremity: COMMON NORMALS: no clubbing, cyanosis or edema and no pedal edema Neuro: COMMON NORMALS: patient oriented x3 Data : 06/16/21 05:12 06/16/21 05:12 A&P Assessment and plan (1) Diffuse papular rash: Drug Induced : AGEP ( acute generalized exanthematous pustulosis ) Likely 2/2 to recent HCQ use. Skin biopsy result: In line with AGEP Plan ESR: 25 Blood Cultures : NTD Wound culture: No growth so far Tick Panel : Solumedrol 40 mg IV Daily Famotidine 20 mg I.V Q12 H Daily Bendryl 50 mg po q4h prn Empirically On doxycycline Plan is to transfer the patient.Since there is no bed available in the nearby hospitals. We will continue to keep trying. Status: Acute (2) Fever: Status: Acute (3) Inflammatory arthritis: Status: Acute Attestations Medical Necessity Statement*: Patient is to be in hospital for management of extensive drug rash. Coding Level of Care Code Acute Oracle Financial Application Developer for [facility] Diagnoses Diffuse papular rash R21 Fever R50.9 Inflammatory arthritis M19.90
[2021-06-17] VITALS (10 sets, daily range): BP systolic 109–147; BP diastolic 66–75; PULSE 69–87; RESP 17–20; TEMP 36.6–37.1; O2SAT 92–100
[2021-06-17] MEDS: diphenhydrAMINE 50 mg/mL SDV 1mL 25 MG IVP ×6 (00:33→20:06)
[2021-06-17 05:15] LABS: Basophils # 0.1 10^3/uL (0.0-0.1); Basophils % 0.4 %; Eosinophils % 0.1 %; Hematocrit 41.4 % (42.0-52.0); Hemoglobin 13.7 g/dL (11.7-16.6); Lymphocytes # 1.1 10^3/uL (0.8-4.8); Lymphocytes % 5.6 %; Mean Corpuscular HGB Conc 33.1 g/dL (30.0-36.0); Mean Corpuscular Hemoglobin 30.2 pg (28.0-34.0); Mean Corpuscular Volume 91.4 fl (80-94); Mean Platelet Volume 9.7 fL (7.4-10.4); Monocytes # 0.8 10^3/uL (0.2-0.9); Monocytes % 4.1 %; Neutrophils # 17.25 10^3/uL (1.8-7.7); Nucleated Red Blood Cells % 0 %; Platelet Count 295 10^3/cmm (130-400); Red Blood Count 4.53 10^6/uL (4.1-5.3); Red Cell Distribution Width 12.7 % (12.1-15.1); White Blood Count 19.4 10^3/uL (4.0-10.0)
[2021-06-17] MEDS: oxyCODONE-APAP 5-325 mg Tablet 1 TAB PO ×4 (05:24→20:10)
[2021-06-17] MEDS: ondansetron 2 mg/ML SDV 2 mL 4 MG IVP ×2 (05:24→20:07)
[2021-06-17 05:49] LABS: Alanine Aminotransferase 22 U/L (0-41); Albumin Level 3.6 g/dL (3.5-5.2); Alkaline Phosphatase 112 IU/L (40-130); Anion Gap 16.1 (5-19); Aspartate Amino Transferase 20 U/L (0-40); Blood Urea Nitrogen 16 mg/dL (8-23); Calcium 9.3 mg/dL (8.5-10.5); Carbon Dioxide 25 mmol/L (22-29); Chloride 105 mmol/L (98-107); Globulin 2.8 g/dL (1.3-4.6); Glomerular Filtration Rate 98.6 mL/min (90-130); Glucose 84 mg/dL (65-115); Osmolality Calculated 294 mOsm/kg (285-295); Potassium 4.1 mmol/L (3.5-5.1); Sodium 142 mmol/L (136-145); Total Bilirubin 0.3 mg/dL (0.15-1.2); Total Protein 6.4 g/dL (6.6-8.7)
[2021-06-17] MEDS: famotidine 20 mg Tablet PO ×2 (08:09→17:00)
[2021-06-17] MEDS: doxycycline 100 mg Tablet PO ×2 (10:12→23:14)
--- NOTE | 2021-06-17 10:31 | PC.SOCIAL ---
IMM Update Pg. 2of IMM updated and reviewed with patient, who verbalized understanding. Copy provided.
--- NOTE | 2021-06-17 16:35 | PC.RESP ---
SMOKING CESSATION INFORMATION SENT TO PATIENT.
--- NOTE | 2021-06-17 18:54 | P.PN_ITS ---
Subjective Subjective: Interval history: Patient was seen and examined this morning, rash has not progressed, but has not even improved significantly. skin desquamation is present. Patient complains of mild pain, some itching. Has remained afebrile. Medications: Reviewed: Yes Vitals/I&O/Wt Last Vital Signs Temp 97.8 F 06/17/21 15:08 Pulse 82 06/17/21 15:08 Resp 17 06/17/21 15:08 BP 127/73 06/17/21 15:08 Pulse Ox 97 06/17/21 15:08 06/17/21 06/17/21 06/17/21 06:59 14:59 22:59 Intake Total 580 / 2120 240 / 240 300 / 540 Output Total 240 / 740 400 / 400 Balance 340 / 1380 240 / 240 -100 / 140 Physical Exam Narrative: EXAM NARRATIVE: Erythematous patches and plaques on the face, extremities, groin, and trunk with pink macules on the palms and soles Const: COMMON NORMALS: patient oriented x3 HENMT: COMMON NORMALS: normocephalic and atraumatic HEAD & SCALP: normocephalic and atraumatic OTHER: Oral crusting and superficial erosion Resp: COMMON NORMALS: clear to auscultation bilaterally EFFORT & INSPECTION: Yes symmetric chest movement AUSCULTATION: clear to auscultation bilaterally Cardio: COMMON NORMALS: regular rate, regular rhythm, S1 normal heart sound present, S2 normal heart sound present, No gallops present (Cardio), No murmurs present (Cardio), No rub (Cardio) and Peripheral pulses 2+ throughout RATE: regular rate RHYTHM: regular rhythm HEART SOUNDS: S1 normal heart sound present and S2 normal heart sound present PERIPHERAL PULSES: Peripheral pulses 2+ throughout GI: COMMON NORMALS: Normal to inspection, nondistended, normoactive bowel sounds present, Soft to palpation, non-tender, No hepatosplenomegaly present and no masses AUSCULTATION: Yes normoactive bowel sounds PALPATION: Yes Soft to palpation and Yes No hepatosplenomegaly present RECTAL EXAM: Yes deferred Extremity: COMMON NORMALS: no clubbing, cyanosis or edema and no pedal edema Neuro: COMMON NORMALS: patient oriented x3 Data : 06/17/21 04:10 06/17/21 04:10 A&P Assessment and plan (1) Diffuse papular rash: Drug Induced : AGEP ( acute generalized exanthematous pustulosis ) Likely 2/2 to recent HCQ use. Skin biopsy result: In line with AGEP Plan ESR: 25 Blood Cultures : NTD Wound culture: No growth so far Tick Panel : Solumedrol 40 mg IV Daily Famotidine 20 mg I.V Q12 H Daily Bendryl 25 mg I.V q4h Empirically On doxycycline Plan is to transfer the patient.Since there is no bed available in the nearby hospitals. We will continue to keep trying. Status: Acute (2) Fever: Status: Acute (3) Inflammatory arthritis: Status: Acute Attestations Medical Necessity Statement*: Patient needs to be in the hospital for the management of drug rash Coding Level of Care Code Acute Director Of The Bi[employer]ics Facility for [facility] Diagnoses Diffuse papular rash R21 Fever R50.9 Inflammatory arthritis M19.90
[2021-06-18] VITALS (12 sets, daily range): BP systolic 107–134; BP diastolic 55–73; PULSE 67–93; RESP 16–22; TEMP 36.5–37.8; O2SAT 96–100
[2021-06-18] MEDS: diphenhydrAMINE 50 mg/mL SDV 1mL 25 MG IVP ×6 (00:20→21:43)
[2021-06-18] MEDS: oxyCODONE-APAP 5-325 mg Tablet 1 TAB PO ×5 (00:21→21:52)
[2021-06-18] MEDS: doxycycline 100 mg Tablet PO ×2 (08:19→21:41)
[2021-06-18] MEDS: famotidine 20 mg Tablet PO ×2 (08:19→17:19)
--- NOTE | 2021-06-18 11:51 | P.PN_ITS ---
Subjective Subjective: Interval history: Patient was seen and examined this morning, rash has not progressed, but has not even improved significantly. skin desquamation is present.No oral lesion,able to eat well. Low grade Temp of :100 Medications: Reviewed: Yes Vitals/I&O/Wt Last Vital Signs Temp 99 F 06/18/21 11:22 Pulse 93 06/18/21 11:22 Resp 16 06/18/21 11:22 BP 117/69 06/18/21 11:22 Pulse Ox 100 06/18/21 11:22 06/17/21 06/18/21 06/18/21 22:59 06:59 14:59 Intake Total 300 / 540 250 / 790 240 / 240 Output Total 400 / 400 Balance -100 / 140 250 / 390 240 / 240 Physical Exam Narrative: EXAM NARRATIVE: Erythematous patches and plaques on the face, extremities, groin, and trunk with pink macules on the palms and soles Const: COMMON NORMALS: patient oriented x3 HENMT: COMMON NORMALS: normocephalic and atraumatic HEAD & SCALP: normocephalic and atraumatic OTHER: Oral crusting and superficial erosion Resp: COMMON NORMALS: clear to auscultation bilaterally EFFORT & INSPECTION: Yes symmetric chest movement AUSCULTATION: clear to auscultation bilaterally Cardio: COMMON NORMALS: regular rate, regular rhythm, S1 normal heart sound present, S2 normal heart sound present, No gallops present (Cardio), No murmurs present (Cardio), No rub (Cardio) and Peripheral pulses 2+ throughout RATE: regular rate RHYTHM: regular rhythm HEART SOUNDS: S1 normal heart sound present and S2 normal heart sound present PERIPHERAL PULSES: Peripheral pulses 2+ throughout GI: COMMON NORMALS: Normal to inspection, nondistended, normoactive bowel sounds present, Soft to palpation, non-tender, No hepatosplenomegaly present and no masses AUSCULTATION: Yes normoactive bowel sounds PALPATION: Yes Soft to palpation and Yes No hepatosplenomegaly present RECTAL EXAM: Yes deferred Extremity: COMMON NORMALS: no clubbing, cyanosis or edema and no pedal edema Neuro: COMMON NORMALS: patient oriented x3 Data : 06/17/21 04:10 06/17/21 04:10 A&P Assessment and plan (1) Diffuse papular rash: Drug Induced : AGEP ( acute generalized exanthematous pustulosis ) Likely 2/2 to recent HCQ use. Skin biopsy result: In line with AGEP Plan ESR: 25 Blood Cultures : NTD Wound culture: No growth so far Tick Panel : Lymes Ab : Negative Solumedrol 40 mg IV Daily Famotidine 20 mg I.V Q12 H Daily Bendryl 25 mg I.V q4h Empirically On doxycycline Plan is to transfer the patient.Since there is no bed available in the nearby hospitals. We will continue to keep trying. Status: Acute (2) Fever: Status: Acute (3) Inflammatory arthritis: Status: Acute Attestations Medical Necessity Statement*: Patient needs to be in hospital for the management of Drug Rash Coding Level of Care Code Acute Post Hole Digging Machine Operator for [facility] Fwd Exam Detailed Diagnoses Diffuse papular rash R21 Fever R50.9 Inflammatory arthritis M19.90
[2021-06-18] MEDS: ondansetron 2 mg/ML SDV 2 mL 4 MG IVP (17:22)
[2021-06-19] VITALS (10 sets, daily range): BP systolic 113–153; BP diastolic 62–76; PULSE 82–91; RESP 14–18; TEMP 36.8–37.1; O2SAT 93–100
[2021-06-19] MEDS: diphenhydrAMINE 50 mg/mL SDV 1mL 25 MG IVP ×6 (01:03→19:49)
[2021-06-19] MEDS: ondansetron 2 mg/ML SDV 2 mL 4 MG IVP (04:53)
[2021-06-19] MEDS: oxyCODONE-APAP 5-325 mg Tablet 1 TAB PO ×4 (04:53→22:05)
[2021-06-19 06:09] LABS: Basophils # 0.1 10^3/uL (0.0-0.1); Basophils % 0.6 %; Eosinophils # 0.4 10^3/uL (0.0-0.8); Eosinophils % 1.8 %; Hematocrit 39.3 % (42.0-52.0); Hemoglobin 13.4 g/dL (11.7-16.6); Lymphocytes # 1.1 10^3/uL (0.8-4.8); Mean Corpuscular HGB Conc 34.1 g/dL (30.0-36.0); Mean Corpuscular Hemoglobin 30.7 pg (28.0-34.0); Mean Corpuscular Volume 89.9 fl (80-94); Mean Platelet Volume 9.2 fL (7.4-10.4); Monocytes # 0.6 10^3/uL (0.2-0.9); Monocytes % 2.6 %; Neutrophils % 87.9 %; Nucleated Red Blood Cells % 0 %; Platelet Count 295 10^3/cmm (130-400); Red Blood Count 4.37 10^6/uL (4.1-5.3); Red Cell Distribution Width 12.6 % (12.1-15.1); White Blood Count 22.6 10^3/uL (4.0-10.0)
[2021-06-19] MEDS: famotidine 20 mg Tablet PO ×2 (09:43→18:26)
[2021-06-19] MEDS: doxycycline 100 mg Tablet PO (09:43)
--- NOTE | 2021-06-19 10:44 | PC.SOCIAL ---
IMM update IMM updated with patient at bedside. Copy Pg.2 provided. Patient verbalized an understanding. Initialled, dated, timed, and placed in chart.
--- NOTE | 2021-06-19 14:21 | P.PN_ITS ---
Subjective Subjective: Interval history: Patient was seen and examined this morning, rash is improving.He has been afebrile, Vitals and labs have been reviewed. Medications: Reviewed: Yes Vitals/I&O/Wt Last Vital Signs Temp 98.5 F 06/19/21 11:35 Pulse 89 06/19/21 11:35 Resp 16 06/19/21 11:35 BP 117/69 06/19/21 11:35 Pulse Ox 96 06/19/21 11:35 06/18/21 06/19/21 06/19/21 22:59 06:59 14:59 Intake Total 650 / 890 360 / 360 Balance 650 / 890 360 / 360 Physical Exam Narrative: EXAM NARRATIVE: Erythematous patches and plaques on the face, extremities, groin, and trunk with pink macules on the palms and soles Const: COMMON NORMALS: patient oriented x3 HENMT: COMMON NORMALS: normocephalic and atraumatic HEAD & SCALP: normocephalic and atraumatic OTHER: Oral crusting and superficial erosion Resp: COMMON NORMALS: clear to auscultation bilaterally EFFORT & INSPECTION: Yes symmetric chest movement AUSCULTATION: clear to auscultation bilaterally Cardio: COMMON NORMALS: regular rate, regular rhythm, S1 normal heart sound present, S2 normal heart sound present, No gallops present (Cardio), No murmurs present (Cardio), No rub (Cardio) and Peripheral pulses 2+ throughout RATE: regular rate RHYTHM: regular rhythm HEART SOUNDS: S1 normal heart sound present and S2 normal heart sound present PERIPHERAL PULSES: Peripheral pulses 2+ throughout GI: COMMON NORMALS: Normal to inspection, nondistended, normoactive bowel sounds present, Soft to palpation, non-tender, No hepatosplenomegaly present and no masses AUSCULTATION: Yes normoactive bowel sounds PALPATION: Yes Soft to palpation and Yes No hepatosplenomegaly present RECTAL EXAM: Yes deferred Extremity: COMMON NORMALS: no clubbing, cyanosis or edema and no pedal edema Neuro: COMMON NORMALS: patient oriented x3 Data : 06/19/21 05:53 06/17/21 04:10 A&P Assessment and plan (1) Diffuse papular rash: Drug Induced : AGEP ( acute generalized exanthematous pustulosis ) Likely 2/2 to recent HCQ use. Skin biopsy result: In line with AGEP Plan ESR: 25 Blood Cultures : NTD Wound culture: No growth so far Tick Panel : Lymes Ab : Negative Solumedrol 40 mg IV Daily Famotidine 20 mg I.V Q12 H Daily Bendryl 25 mg I.V q4h Was Empirically On doxycycline.It has been discontinued. Plan was to transfer the patient.Since there is no bed available in the nearby hospitals.Transfer has not taken place. Status: Acute (2) Fever: Status: Acute (3) Inflammatory arthritis: Status: Acute Attestations Medical Necessity Statement*: Patient needs to be in hospital for the management of Drug rash Coding Level of Care Code Acute Semiconductor Processor for [facility] Fwd Diagnoses Diffuse papular rash R21 Fever R50.9 Inflammatory arthritis M19.90
[2021-06-20] VITALS (7 sets, daily range): BP systolic 116–153; BP diastolic 67–80; PULSE 77–96; RESP 14–18; TEMP 36.7–36.8; O2SAT 94–98
[2021-06-20] MEDS: diphenhydrAMINE 50 mg/mL SDV 1mL 25 MG IVP ×4 (01:16→12:13)
[2021-06-20] MEDS: oxyCODONE-APAP 5-325 mg Tablet 1 TAB PO ×2 (03:35→12:17)
[2021-06-20 05:18] LABS: Basophils # 0.1 10^3/uL (0.0-0.1); Basophils % 0.4 %; Eosinophils # 0.4 10^3/uL (0.0-0.8); Eosinophils % 1.6 %; Hematocrit 39.8 % (42.0-52.0); Hemoglobin 13.5 g/dL (11.7-16.6); Lymphocytes # 1.4 10^3/uL (0.8-4.8); Lymphocytes % 5.7 %; Mean Corpuscular HGB Conc 33.9 g/dL (30.0-36.0); Mean Corpuscular Hemoglobin 30.3 pg (28.0-34.0); Mean Corpuscular Volume 89.2 fl (80-94); Mean Platelet Volume 9.5 fL (7.4-10.4); Monocytes # 0.7 10^3/uL (0.2-0.9); Monocytes % 2.9 %; Neutrophils # 21.57 10^3/uL (1.8-7.7); Neutrophils % 86.8 %; Nucleated Red Blood Cells % 0 %; Platelet Count 299 10^3/cmm (130-400); Red Blood Count 4.46 10^6/uL (4.1-5.3); Red Cell Distribution Width 12.6 % (12.1-15.1); White Blood Count 24.9 10^3/uL (4.0-10.0)
[2021-06-20 05:39] LABS: Blood Urea Nitrogen 11 mg/dL (8-23); Calcium 8.4 mg/dL (8.5-10.5); Carbon Dioxide 27 mmol/L (22-29); Chloride 99 mmol/L (98-107); Glucose 106 mg/dL (65-115); Osmolality Calculated 282 mOsm/kg (285-295); Sodium 136 mmol/L (136-145)
[2021-06-20] MEDS: famotidine 20 mg Tablet PO ×2 (08:39→17:50)
--- NOTE | 2021-06-20 13:00 | P.PN_ITS ---
Subjective Subjective: Interval history: Hospital course, labs appreciated. Denies any nausea, vomiting, headache, dizziness. Has remained afebrile and hemodynamically stable. He states he thinks his rash is improving. He is complaining of pain in his legs and toes on sitting up with occasional days discoloration for last couple of months. Denies any chest pain. States he smokes up to 3 to 4 cigarettes daily for many years. We did discuss the possible etiology of claudication and if needed patient would need to follow-up with vascular surgery as an outpatient. We discussed of a possible discharge tomorrow and that going forward he will need to be on steroids for a few weeks which needs to be tapered down as per the soldering technician. On discussing about discharge patient got upset and asked if he would need to follow-up regularly with soldering technician as he lives far away from [place]. We discussed that he would need to follow-up regularly for few weeks. Medications: Reviewed: Yes Vitals/I&O/Wt Last Vital Signs Temp 98.3 F 06/20/21 11:11 Pulse 96 06/20/21 11:11 Resp 18 06/20/21 12:17 BP 124/67 06/20/21 11:11 Pulse Ox 96 06/20/21 11:11 06/19/21 06/20/21 06/20/21 22:59 06:59 14:59 Intake Total 480 / 840 240 / 1080 840 / 840 Output Total 125 / 125 Balance 480 / 840 240 / 1080 715 / 715 Physical Exam Narrative: EXAM NARRATIVE: Erythematous patches and plaques on the face, extremities, groin, and trunk with pink macules on the palms and soles with few lesions of whitish discoloration and center, oral sores present on the lips, no open wounds on the skin, generalized desquamation present, no discharge Const: COMMON NORMALS: patient oriented x3 HENMT: COMMON NORMALS: normocephalic and atraumatic HEAD & SCALP: normocephalic and atraumatic OTHER: Oral crusting and superficial erosion Resp: COMMON NORMALS: clear to auscultation bilaterally EFFORT & INSPECTION: Yes symmetric chest movement AUSCULTATION: clear to auscultation bilaterally Cardio: COMMON NORMALS: regular rate, regular rhythm, S1 normal heart sound present, S2 normal heart sound present, No gallops present (Cardio), No murmurs present (Cardio), No rub (Cardio) and Peripheral pulses 2+ throughout RATE: regular rate RHYTHM: regular rhythm HEART SOUNDS: S1 normal heart sound present and S2 normal heart sound present PERIPHERAL PULSES: Peripheral pulses 2+ throughout GI: COMMON NORMALS: Normal to inspection, nondistended, normoactive bowel sounds present, Soft to palpation, non-tender, No hepatosplenomegaly present and no masses AUSCULTATION: Yes normoactive bowel sounds PALPATION: Yes Soft to palpation and Yes No hepatosplenomegaly present RECTAL EXAM: Yes deferred Extremity: COMMON NORMALS: no clubbing, cyanosis or edema and no pedal edema Neuro: COMMON NORMALS: patient oriented x3 Data : 06/20/21 04:40 06/20/21 04:40 Micro: Microbiology 06/14/21 13:55 Blood Culture - Final Blood NO GROWTH AFTER 5 DAYS 06/14/21 13:23 Blood Culture - Final Blood NO GROWTH AFTER 5 DAYS A&P Assessment and plan (1) Diffuse papular rash: Drug Induced : AGEP ( acute generalized exanthematous pustulosis ) Likely 2/2 to recent HCQ use. Skin biopsy result: In line with AGEP Continue with Solu-Medrol 40 mg IV daily with slow taper as an outpatient. We'll have to follow-up with dermatology regularly. Famotidine 20 mg PO every 12 with Benadryl 25 mg oral every 6 hours as needed. Nystatin powder. Blood cultures negative, wound culture negative so far. Tick panel pending. Lyme's negative. Status: Acute (2) Fever: Status: Acute (3) Inflammatory arthritis: Status: Acute Attestations Medical Necessity Statement*: Requires further hospitalization for management of diffuse maculopapular AGEP, ruling out severe peripheral vascular disease. Time Spent in Patient Care: Greater than 35 minutes (>than 50% of time spent in counselling and/or direct pt care on unit) . Coding Level of Care Code Acute Polysomnography Technologist for [facility] Jose Alberto Diagnoses Diffuse papular rash R21 Fever R50.9 Inflammatory arthritis M19.90
[2021-06-20] MEDS: TRAMadol 50 mg Tablet PO (16:35)
[2021-06-20 17:11] LABS: E. Chaffeensis AB IGG <1:64; E. Chaffeensis AB IGM <1:20
[2021-06-20] MEDS: nystatin powder 15 gm Btl 1 APPLIC TOPICAL (17:49)
[2021-06-20] MEDS: diphenhydrAMINE 25 mg Capsule PO (21:25)
[2021-06-20] MEDS: acetaminophen 325 mg Tablet 650 MG PO (21:25)
[2021-06-21] VITALS: BP 126/73; PULSE 78; RESP 18; TEMP 36.7; O2SAT 98
[2021-06-21 04:00] VITALS: BP 114/57; PULSE 74; RESP 18; TEMP 36.5; O2SAT 99
[2021-06-21 08:00] VITALS: BP 139/72; PULSE 97; RESP 16; TEMP 37; O2SAT 98
[2021-06-21] MEDS: famotidine 20 mg Tablet PO (08:05)
[2021-06-21] MEDS: nystatin powder 15 gm Btl 1 APPLIC TOPICAL (08:05)
[2021-06-21] MEDS: diphenhydrAMINE 25 mg Capsule PO (08:05)
[2021-06-21] MEDS: acetaminophen 325 mg Tablet 650 MG PO (08:05)
--- NOTE | 2021-06-21 08:13 | PC.NURSE ---
patient very upset with care and said he is being discharged by 1 or he is leaving AMA at 1. notified Dr Matson
--- NOTE | 2021-06-21 10:54 | PC.CHAP ---
Pastoral Care Encounter/Spiritual Assessment Type of Contact [] Declined process architect visit [] Patient/Family/Request visit [] Outpatient visit [] Follow-up visit [] Physician referral [] Code/Alert [x] Routine visit [] Staff referral [] Actively dying [] Patient sleeping [] Family support [] [] Out of room [] Palliative care [] [] Receiving care in room [] Pre-surgical visit [] Trauma [] Long length of stay [] ICU visit [] Other: Relational/Emotional Strength [x] Patient feels connected with others/family/visitors/staff [] Distress [] Loneliness/isolation [] Abandonment Spirituality of Patient [x] Person of Katia [] Attends Advent of their Katia [] Believes in Prayer [] Reads Bible or Adventism materials [] There are Spiritual issues to be addressed Casket Assembler Interventions [] Prayer [x] Active listening [x] Non-anxious presence [x] Spiritual/emotional support [] Crisis/trauma care [] Spiritual counseling [] Bereavement support [] Provided bereavement packet [] Provided Bible/devotional materials [] Provided toy/stuffed animal, coloring book to patient or family member [] Provided Communion [] Anointing/[place] [] Salvation [x] Completed spiritual assessment [] Other: Impact on Illness or Injury [] Angry [] Fearful [] Anxious [] Often cries [] Exhaustion [] Unable to work [] Unable to attend gnosticist [] Unable to walk/stand [] Unable to read [] Unable to drive [] Unable to eat/drink [] Unable to sleep [] Unable to be with family [] Patient intubated [] Other: Summary Pt had reaction to a medication and his skin is peeling all over his body. He said it is not as painful as it looks but it has been one of the most difficult things he has had to overcome. Pt said he has had two incidents in his life where he was almost killed and he felt an intense sense of peace come over him. Because of that he believes in an afterlife. Pt is being released today and is waiting for his to arrive for a ride home. Time spent with patient 15m
--- NOTE | 2021-06-21 11:05 | P.DS_ITS ---
Discharge Providers Date of Admission: 06/14/21 14:32 Date of Discharge: June 21, 2021 Attending Provider at Admission: Mahin Vogel MD Attending Provider at Discharge: José Miguel Matson MD Primary Care Provider: Lili Mendiola LATEXER Diagnoses at Discharge Discharge Diagnosis (1) Diffuse papular rash: Status: Acute (2) Fever: Status: Acute (3) Inflammatory arthritis: Status: Acute Reason for Visit Reason for Visit: RASH Hospital Course Hospital Course Quang Mccullough is a 60 year old male with past medical history of inflammatory arthritis came in with c/o worsening diffuse skin eruption accompanied with itching and fever since Sunday evening who was admitted on June 14. He was started on hydroxychloroquine approximately 2 weeks prior to this skin eruptions by his disk and tape machine tender as an outpatient for inflammatory arthritis. Patient had seen business continuity planner before presenting to the ER and was started on oral steroids further seen but did not stop taking hydroxychloroquine during the treatment. Patient has had skin biopsy done on at dermatology office which was consistent with acute generalized exanthematous pustulosis. Case of discussed w ith patient's outpatient business continuity planner and started on high-dose steroids. Patient tolerated the treatment well. During hospitalization he was complaining of occasional discrimination of the skin all over his body. He complained of dryness and itching in his eyes and in between his thighs. He was started on nystatin powder, lacto calamine lotion and regular oral care and refresh gel. Patient is also complaining of pain in his toes on walking which as per him has been increasing over the last couple of months with occasional discoloration of the toes with his feet dangling in the air. Lower limb arterial duplex was done. It is possible patient's symptoms are secondary to vasculitis. He is advised to follow-up with his disk and tape machine tender for further management and work-up. He has been discharged in hemodynamically stable condition with advised to follow-up with his disk and tape machine tender and business continuity planner within next 1 to 3 days and follow-up with boring machine operator vertical within next 1 week. He has been discharged on oral aspirin, high-dose steroids which had to be tapered as per business continuity planner office. Physical Exam Narrative: EXAM NARRATIVE: Erythematous patches and plaques on the face, extremities, groin, and trunk with pink macules on the palms and soles with few lesions of whitish discoloration and center, oral sores present on the lips, no open wounds on the skin, generalized desquamation present, no discharge Const: COMMON NORMALS: patient oriented x3 HENMT: COMMON NORMALS: normocephalic and atraumatic HEAD & SCALP: normo cephalic and atraumatic OTHER: Oral crusting and superficial erosion Resp: COMMON NORMALS: clear to auscultation bilaterally EFFORT & INSPECTION: Yes symmetric chest movement AUSCULTATION: clear to auscultation bilaterally Cardio: COMMON NORMALS: regular rate, regular rhythm, S1 normal heart sound present, S2 normal heart sound present, No gallops present (Cardio), No murmurs present (Cardio), No rub (Cardio) and Peripheral pulses 2+ throughout RATE: regular rate RHYTHM: regular rhythm HEART SOUNDS: S1 normal heart sound present and S2 normal heart sound present PERIPHERAL PULSES: Peripheral pulses 2+ throughout GI: COMMON NORMALS: Normal to inspection, nondistended, normoactive bowel sounds present, Soft to palpation, non-tender, No hepatosplenomegaly present and no masses AUSCULTATION: Yes normoactive bowel sounds PALPATION: Yes Soft to palpation and Yes No hepatosplenomegaly present RECTAL EXAM: Yes deferred Extremity: COMMON NORMALS: no clubbing, cyanosis or edema and no pedal edema Neuro: COMMON NORMALS: patient oriented x3 Discharge Data Data Completed and Pending: Completed Studies During Hospitalization Category Date Time Status CT abdomen pelvis w con* [id number] Urge nt Cat Scan 06/14/21 13:13 Completed Pending at discharge Category Date Time Status Miscellaneous Kelli t Routine Lab 06/15/21 10:45 Received Tick Panel Urgent Lab 06/14/21 14:52 [place] [id number] Rout ine Ultrasound 06/21/21 09:27 Ordered Labs from last 24 hours 06/14/21 14:52 E. chaffeensis IgG Ab <1:64 E. chaffeensis IgM Ab <1:20 E. chaffeensis Int erp See note E. chaffeensis Com ment Not Reportable Addt'l Data from Hospital Stay: Laboratory Results WBC 24.9 10^3/uL (4.0 -10.0) H 06/20/21 04:40 Corrected WBC Cancelled 06/14/21 13:23 RBC 4.46 10^6/uL (4.1 -5.3) 06/20/21 04:40 Hgb 13.5 g/dL (11.7-1 6.6) 06/20/21 04:40 Hct 39.8 % (42.0-52.0 ) L 06/20/21 04:40 MCV 89.2 fl (80-94) 06/20/21 04:40 MCH 30.3 pg (28.0-34. 0) 06/20/21 04:40 MCHC 33.9 g/dL (30.0-3 6.0) 06/20/21 04:40 RDW 12.6 % (12.1-15.1 ) 06/20/21 04:40 Plt Count 299 10^3/cmm (130 -400) 06/20/21 04:40 MPV 9.5 fL (7.4-10.4) 06/20/21 04:40 Neut % (Auto) 86.8 % 06/20/21 04:40 Lymph % (Auto) 5.7 % 06/20/21 04:40 [place] % (Auto) 2.9 % 06/20/21 04:40 Eos % (Auto) 1.6 % 06/20/21 04:40 Baso % (Auto) 0.4 % 06/20/21 04:40 Neut # (Auto) 21.57 10^3/uL (1. 8-7.7) H 06/20/21 04:40 Lymph # (Auto) 1.4 10^3/uL (0.8- 4.8) 06/20/21 04:40 [place] # (Auto) 0.7 10^3/uL (0.2- 0.9) 06/20/21 04:40 Eos # (Auto) 0.4 10^3/uL (0.0- 0.8) 06/20/21 04:40 Baso # (Auto) 0.1 10^3/uL (0.0- 0.1) 06/20/21 04:40 Nucleated RBC % (a uto) 0 % 06/20/21 04:40 Total Counted Cancelled 06/14/21 13:23 Atypical Lymphs % Cancelled 06/14/21 13:23 Absolute Neutrophi ls Cancelled 06/14/21 13:23 Segmented Neutroph ils Cancelled 06/14/21 13:23 Abs Segm Neuts (Ma n) Cancelled 06/14/21 13:23 Band Neutrophils Cancelled 06/14/21 13:23 Abs Band Neuts (Ma n) Cancelled 06/14/21 13:23 Absolute Lymphocyt es Cancelled 06/14/21 13:23 Lymphocytes (Manua [place]) Cancelled 06/14/21 13:23 Monocytes (Manual) Cancelled 06/14/21 13:23 Absolute Monocytes Cancelled 06/14/21 13:23 Eosinophils (Manua l) Cancelled 06/14/21 13:23 Absolute Eosinophi ls Cancelled 06/14/21 13:23 Basophils (Manual) Cancelled 06/14/21 13:23 Absolute Basophils Cancelled 06/14/21 13:23 Metamyelocytes Cancelled 06/14/21 13:23 Myelocytes Cancelled 06/14/21 13:23 Promyelocytes Cancelled 06/14/21 13:23 Nucleated RBCs Cancelled 06/14/21 13:23 Nucleated RBCs # 0.0 /100WBC 06/20/21 04:40 Pathologist Review Cancelled 06/14/21 13:23 Hypersegmented Catarino ys Cancelled 06/14/21 13:23 Blast Cells Cancelled 06/14/21 13:23 Smudge Cells Cancelled 06/14/21 13:23 Toxic Granulation Cancelled 06/14/21 13:23 Toxic Vacuolation Cancelled 06/14/21 13:23 Dohle Bodies Cancelled 06/14/21 13:23 Preeti Rods Cancelled 06/14/21 13:23 Platelet Estimate Cancelled 06/14/21 13:23 Giant Platelets Cancelled 06/14/21 13:23 Polychromasia Cancelled 06/14/21 13:23 Hypochromasia Cancelled 06/14/21 13:23 Poikilocytosis Cancelled 06/14/21 13:23 Basophilic Stippli ng Cancelled 06/14/21 13:23 Anisocytosis Cancelled 06/14/21 13:23 Microcytosis Cancelled 06/14/21 13:23 Macrocytosis Cancelled 06/14/21 13:23 Spherocytes Cancelled 06/14/21 13:23 Sickle Cells Cancelled 06/14/21 13:23 Target Cells Cancelled 06/14/21 13:23 Tear Drop Cells Cancelled 06/14/21 13:23 Ovalocytes Cancelled 06/14/21 13:23 Stomatocytes Cancelled 06/14/21 13:23 Helmet Cells Cancelled 06/14/21 13:23 [place] Albino s Cancelled 06/14/21 13:23 [place] Cells Cancelled 06/14/21 13:23 Crenated Cell Cancelled 06/14/21 13:23 Acanthocytes (Spur ) Cancelled 06/14/21 13:23 Rouleaux Cancelled 06/14/21 13:23 Schistocytes Cancelled 06/14/21 13:23 RBC Morph Comment Cancelled 06/14/21 13:23 ESR 25 mm/hr (0-10) H 06/15/21 04:35 PT 13.80 SECONDS (12 .1-14.9) 06/14/21 13:23 INR 1.03 (0.8-1.2) 06/14/21 13:23 APTT 33.5 SECONDS (23. 9-36.7) 06/14/21 13:23 Sodium 136 mmol/L (136-1 45) 06/20/21 04:40 Potassium 4.0 mmol/L (3.5-5 .1) 06/20/21 04:40 Chloride 99 mmol/L (98-107 ) 06/20/21 04:40 Carbon Dioxide 27 mmol/L (22-29) 06/20/21 04:40 Anion Gap 14.0 (5-19) 06/20/21 04:40 BUN 11 mg/dL (8-23) 06/20/21 04:40 Creatinine 0.7 mg/dL (0.7-1. 2) 06/20/21 04:40 GFR Calculation 115.0 mL/min (90- 130) 06/20/21 04:40 Glucose 106 mg/dL (65-115 ) 06/20/21 04:40 Calculated Osmolal ity 282 mOsm/kg (285- 295) L 06/20/21 04:40 Lactic Acid 1.4 mmol/L (0.5-2 .2) 06/15/21 04:35 Lactate 1.4 mmol/L (0.5-2 .2) 06/14/21 13:23 Calcium 8.4 mg/dL (8.5-10 .5) L 06/20/21 04:40 Total Bilirubin 0.3 mg/dL (0.15-1 .2) 06/17/21 04:10 AST 20 U/L (0-40) 06/17/21 04:10 ALT 22 U/L (0-41) 06/17/21 04:10 Alkaline Phosphata se 112 IU/L (40-130) 06/17/21 04:10 Total Protein 6.4 g/dL (6.6-8.7 ) L 06/17/21 04:10 Albumin 3.6 g/dL (3.5-5.2 ) 06/17/21 04:10 Globulin 2.8 g/dL (1.3-4.6 ) 06/17/21 04:10 Lipase 27 U/L (13-60) 06/14/21 13:23 Procalcitonin 0.10 ng/mL (0-0.5 ) 06/15/21 04:35 Urine Color Yellow (Yellow) 06/14/21 13:15 Urine Appearance Clear (CLEAR) 06/14/21 13:15 Urine pH 5 (5-7) 06/14/21 13:15 Ur Specific Gravit y 1.015 (1.005-1.0 30) 06/14/21 13:15 Urine Protein Neg (Negative) 06/14/21 13:15 Urine Glucose (UA) Norm (Normal) 06/14/21 13:15 Urine Ketones Negative (Negati ve) 06/14/21 13:15 Urine Blood Neg (Negative) 06/14/21 13:15 Urine Nitrate Negative (Negati ve) 06/14/21 13:15 Urine Bilirubin Neg (Negative) 06/14/21 13:15 Urine Urobilinogen Norm mg/dL (Negat pao) 06/14/21 13:15 Ur Leukocyte Ebonie ase Negative (Negati ve) 06/14/21 13:15 Lyme Ab (Western B lot) <0.90 index 06/14/21 14:52 E. chaffeensis IgG Ab <1:64 06/14/21 14:52 E. chaffeensis IgM Ab <1:20 06/14/21 14:52 E. chaffeensis Int erp See note 06/14/21 14:52 E. chaffeensis Com ment Not Reportable 06/14/21 14:52 Impressions Abdomen/Pelvis CT 06/14/21 13:13 IMPRESSION: 1. No acute abdominal or pelvic abnormalities identified. 2. Prior cholecystectomy. 3. Normal appendix. 4. Mild constipation. 5. Focal areas of mild pneumonitis at the lung bases, lingula and middle lobe. Vitals: Last Vital Signs Temp 98.6 F 06/21/21 08:00 Pulse 97 06/21/21 08:00 Resp 16 06/21/21 08:00 BP 139/72 06/21/21 08:00 Pulse Ox 98 06/21/21 08:00 Discharge Plan Discharge Patient Disposition: Home Condition: Stable Prescriptions: New prednisone 20 mg tablet 20 mg PO BID 7 Days Qty: 14 RF: 0 Refresh Liquigel 1 % drops, liquid gel 1 drp ophthalmic (eye) Q8H Qty: 15 RF: 0 nystatin 100,000 unit/gram powder 1 applic topical BID Qty: 60 RF: 0 Remedy Calazime Protect Paste 3.5-0.2-69-16.5 % paste 1 applic topical Q24H Qty: 113 RF: 0 Vigamox 0.5 % drops 1 drp ophthalmic (eye) TID 3 Days Qty: 3 RF: 0 famotidine 20 mg Tablet 20 mg PO BID 10 Days Qty: 20 RF: 0 Continued hyoscyamine sulfate 0.125 mg tablet 0.125 mg PO QID RF: 0 ondansetron HCl [Zofran] 4 mg tablet 4 mg PO Q8H RF: 0 hydrocodone-acetaminophen 5-325 mg tablet 1 tab PO BID PRN (Reason: Pain) RF: 0 Discharge Orders: Discharge Order (Routine); Ordered 06/21/21 Ordered By: José Miguel Matson Referrals: Lili Mendiola FNP [Primary Care Provider] - Bryan Ervin MD [Physician] - 4-7 days Eyad Mclaughlin MD [Physician] - 7-10 days Aydee Johnson DO [Physician] - 1-3 days Discharge Diet: Regular Discharge Activity: Resume usual activity Patient Instructions: Opioid Safety Activity Restrictions/Additional Instructions: Please continue to put nystatin powder in the skin creases, groin. Please continue to use lacto calamine lotion with moisturizer for dryness on the skin on the face arms and legs. Please continue to use refresh liquid gel 3 times a day. Please continue with aggressive oral care with mouthwash twice daily. Discharge Attestations Time Spent in Discharge Care*: greater than 30 min Specific Discharge Activities: educating patient, discussing with pcp/other providers, discussing with case resolution specialist/social workers/dc planners, documenting/other paperwork and evaluating patient/reviewing data Status at Discharge: Cognitive status at discharge: cognitively intact , Behavioral status at discharge: cooperative , Functional status at discharge: independent ambulation Overall status at discharge: patient is progressing back to baseline Quality Metrics Clinical Quality Measures During this hospital stay, did patient experience: None Coding Level of Care Code Acute Chg FW DC note Diagnoses Diffuse papular rash R21 Fever R50.9 Inflammatory arthritis M19.90
--- NOTE | 2021-06-21 11:25 | PC.NURSE ---
Dr Matson requesting the ultrasound be done soon so patient can be discharged. Architecture Instructor called radiology and let them know Dr Matson's request.
[2021-06-21 11:42] VITALS: BP 129/68; PULSE 70; RESP 16; TEMP 36.6; O2SAT 97
--- NOTE | 2021-06-21 12:06 | PC.NURSE ---
unable to make an appointment with Dr. Johnson's office for patient. Message left for office to call him
[2021-06-21 12:08] LABS: C Reactive Protein 171.7 mg/L (0.0-4.9)
--- NOTE | 2021-06-21 12:48 | PC.NURSE ---
patient given discharge instructions and verbalized understanding of instructions. patient waiting on family to arrive for ride home.
[2021-06-21 14:25] LABS: Erythrocyte Sedimentation Rate 16 mm/hr (0-10)
--- NOTE | 2021-06-21 15:07 | PC.SOCIAL ---
IMM Update pg 2 of IMM updated and reviewed w/ patient.
[2021-06-21 15:09] VITALS: BP 129/68; PULSE 70; RESP 16; TEMP 36.6; O2SAT 97
--- NOTE | 2021-06-21 15:09 | PC.NURSE ---
patient taken to private vehicle via wheelchair by staff
[2021-06-21 17:28] LABS: RMSF IGG NOT DETECTED; RMSF IGM NOT DETECTED
--- NOTE | 2021-06-22 12:25 | PC.SOCIAL ---
discharge follow up call made. spoke with patient. he reports he is at his primary care doctors, they are trying to get him in at the burn unit. patient states i should have never been discharged, i tried to tell them that, i don't have time to talk, but i'm not coming back there real estate underwriter was unable to do any discharge teaching, ask about medications, or follow up appointments.
== END 2021-06-21 15:10 | disposition home or self-care (01) | DRG 607 ==
LOC: ER 14:13 → MEDSURG 14:57
PROVIDERS: Admitting Provider Internal Medicine; Emergency Provider Emergency Medicine; PCP Nurse Practitioner Family; Visit Provider Student in an Organized Health Care Education/Training Program
DX: L27.0 Generalized skin eruption due to drugs and medicaments taken internally (principal); T37.8X5A Adverse effect of other specified systemic anti-infectives and antiparasitics, initial encounter; L53.8 Other specified erythematous conditions; Z79.899 Other long term (current) drug therapy; F17.210 Nicotine dependence, cigarettes, uncomplicated; I77.6 Arteritis, unspecified; Z79.891 Long term (current) use of opiate analgesic
CPT/HCPCS: 36415; 74177; 80048; 80053; 81003; 83605; 83690; 84145; 85025; 85610; 85651; 85730; 86140; 86618; 86666; 86757; 87040; 87070; 93005; 96365; 96366; 96367; 96375; 99291; J0692; J1200; J2270; J2405; J2920; J2930; J3370; J3490; J7030; J7050; Q0163; Q9967

== ENCOUNTER 2025-09-22 06:41 | Outpatient (CLI) | payer MEDICARE, OTHER, SELFPAY ==
--- NOTE | 2025-09-22 06:59 | US_ITS ---
WS: [id number] Complete ABDOMINAL ULTRASOUND HISTORY: Pancreatic Disease COMPARISON: CT 06/14/2021 Liver: 14.0 cm in length. Normal size liver with coarse echotexture. No mass identified. Portal Vein: Normal hepatopetal flow with monophasic waveform. Gallbladder: Surgically removed. CBD: 0.4 cm Pancreas: Normal size and echogenicity. Right kidney: 9.5 cm x 5.2 x 5.3 cm. Cortex: 1.3 cm. Normal size and echogenicity. No hydronephrosis or mass. Left kidney: 10.2 cm x 5.0 cm x 3.7 cm. Cortex: 0.8 cm. Normal size and echogenicity. No hydronephrosis or mass. Spleen: 12.0 cm. Normal size and echogenicity. Aorta and IVC: Unremarkable abdominal aorta and IVC. US/US abdomen complete* [id number] Impression: 1. Prior cholecystectomy. 2. Mildly echogenic pancreas but no mass. 3. No renal obstruction. 4. Hepatocellular disease. Consider hepatic steatosis.
== END 2025-09-22 06:42 | disposition home or self-care (01) ==
LOC: RAD 06:45
PROVIDERS: PCP Family Medicine; Visit Provider Family Medicine
DX: K86.9 Disease of pancreas, unspecified (principal); Z90.49 Acquired absence of other specified parts of digestive tract; K76.0 Fatty (change of) liver, not elsewhere classified
CPT/HCPCS: 76700